=== PATIENT | female | born 1985 | race Hispanic/Latino ===

== ENCOUNTER 2024-01-21 10:13 | Emergency (ER) | payer OTHER ==
[~2024-01-21] VITALS: Ht 157.5 cm; Wt 129.3 kg
[2024-01-21 10:30] VITALS: TEMP 103.1
[2024-01-21] MEDS: ibuPROFEN 800 MG TAB PO ONE (10:30)
[2024-01-21] MEDS: acetaMINOPHEN 500 MG TABLET PO ONE (10:32)
[2024-01-21 10:53] LABS: RAPID GROUP A STREP negative (NEGATIVE)
[2024-01-21 11:03] LABS: COVID19 (SARS ANTIGEN RAPID) PRESUMPTIVE NEGATIVE (NEGATIVE)
[2024-01-21 11:04] LABS: INFLUENZA TYPE A Negative For Type A (NEGATIVE); INFLUENZA TYPE B Negative For Type B (NEGATIVE)
[2024-01-21] MEDS: AMOX/CLAV 875/125MG TAB PO ONE (11:06)
[2024-01-21] MEDS: 0.9%NACL 1000ML 1,000 ML IV ONE (11:44)
[2024-01-21] MEDS ORDERED: AMOX1TAB16 PO (12:14)
[2024-01-21] MEDS ORDERED: IBUP-2077 PO (12:14)
[2024-01-21] MEDS: ketOROlac 30MG VIAL (30MG/ML) IVP ONE (12:19)
[2024-01-21] MEDS: ondanSETRON 4MG INJ IVP ONE (12:50)
[2024-01-21] MEDS: ondanSETRON 4MG INJ ONE (12:51)
[2024-01-21 13:26] VITALS: BP 132/76; PULSE 82; RESP 18; TEMP 99.1; O2SAT 99
== END 2024-01-21 17:34 | disposition home or self-care (01) ==
LOC: EDH 10:13
DX: N39.0 Urinary tract infection, site not specified (principal); R51.9 Headache, unspecified; R50.9 Fever, unspecified; Z20.822 Contact with and (suspected) exposure to COVID-19
CPT/HCPCS: 99284; 96374; 96361; 96375; 87426; 87880; 87804 ×2; J7030; J2405; J1885